=== PATIENT | male | born 1940 | race Caucasian/White ===

== ENCOUNTER 2017-04-07 04:10 | Emergency (ER) | payer OTHER ==
[~2017-04-07] VITALS: Ht 172.7 cm; Wt 71.0 kg
[~2017-04-07 04:10] MED LIST: ACTONEL35 MG PO; ACTONEL5 MG PO; BENADRYL25 MG PO; CLINDAMYCIN HC300 MG PO; COUMADIN1 MG PO; DELTASONE10 MG PO; FERROUS SULFAT325 MG PO; HYDROCODON-ACE1 EAC7 PO; KEFLEX500 MG PO; NORCO 5/3251 TABLET PO; PEN-VEE K,VEET500 MG PO; PERCOCET 5/31 TABLET PO; PREDNISONE10 MG PO; PRO AIR; PROAIR HFA8.5 GM IH; SENNA-TIME S T1 EACH PO; SILVADENE20 GM TP; THEOPHYLLINE A300 M1 PO; THEOPHYLLINE PO; TRAMADOL HCL50 MG PO; TYLENOL REGULA325 MG PO; TYLENOL WITH C1 EACH PO; VITAMIN D1000 UNIT PO
[2017-04-07] MEDS ORDERED: BACITRAYCIN PLU28 G1 TP (05:38)
[2017-04-07 05:57] VITALS: BP 151/70
== END 2017-04-07 05:57 | disposition home or self-care (01) ==
LOC: EME 04:10
PROVIDERS: Emergency Medicine
DX: S91.312A Laceration without foreign body, left foot, initial encounter (principal); S91.311A Laceration without foreign body, right foot, initial encounter; M25.572 Pain in left ankle and joints of left foot; M25.571 Pain in right ankle and joints of right foot; G89.29 Other chronic pain; J44.9 Chronic obstructive pulmonary disease, unspecified; K21.9 Gastro-esophageal reflux disease without esophagitis; Z88.6 Allergy status to analgesic agent; Z88.8 Allergy status to other drugs, medicaments and biological substances
CPT/HCPCS: 82948; 99281; 99284

== ENCOUNTER 2017-05-15 16:26 | Emergency (ER) | payer OTHER ==
[~2017-05-15] VITALS: Ht 172.7 cm; Wt 75.1 kg
[~2017-05-15 16:26] MED LIST changes: +BACITRAYCIN PLU28 G1 TP
[2017-05-15] MEDS ORDERED: ULTRACET1 TABLET PO (18:34)
[2017-05-15 18:58] VITALS: BP 165/71
== END 2017-05-15 19:02 | disposition home or self-care (01) ==
LOC: EME 16:26
DX: S43.401A Unspecified sprain of right shoulder joint, initial encounter (principal); X50.0XXA Overexertion from strenuous movement or load, initial encounter; Y92.511 Restaurant or cafe as the place of occurrence of the external cause; Y99.0 Civilian activity done for income or pay; J45.909 Unspecified asthma, uncomplicated; Z88.6 Allergy status to analgesic agent
CPT/HCPCS: 73030; 99281; 99283

== ENCOUNTER 2017-06-01 10:41 | Emergency (ER) | payer OTHER ==
[~2017-06-01] VITALS: Ht 172.7 cm; Wt 72.6 kg
[~2017-06-01 10:41] MED LIST changes: +ULTRACET1 TABLET PO
[2017-06-01] MEDS ORDERED: XARELTO1 EACH PO (13:58)
[2017-06-01] MEDS ORDERED: PERCOCET 5/31 TABLET PO (13:58)
[2017-06-01 14:16] LABS: CHLORIDE 108 mEq/L (99-109); POTASSIUM 4.3 mEq/L (3.7-5.4)
[2017-06-01 14:17] LABS: SODIUM 141 mEq/L (136-147)
[2017-06-01 14:18] LABS: GLUCOSE 100 mg/dL (70-99)
[2017-06-01 14:22] LABS: CREATININE 0.9 mg/dL (0.6-1.3); GFR ESTIMATE (CALCULATED) > 59 mL/min/ (58.99-99999)
[2017-06-01 14:23] LABS: UREA NITROGEN (BUN) 25 mg/dL (9-23)
[2017-06-01] MEDS ORDERED: ELIQUIS5 MG PO (14:27)
[2017-06-01 14:46] VITALS: BP 119/73
== END 2017-06-01 14:46 | disposition home or self-care (01) ==
LOC: EME 10:41
PROVIDERS: Nurse Practitioner Family
DX: S92.402A Displaced unspecified fracture of left great toe, initial encounter for closed fracture (principal); M25.511 Pain in right shoulder; W18.30XA Fall on same level, unspecified, initial encounter; Y99.0 Civilian activity done for income or pay; I82.492 Acute embolism and thrombosis of other specified deep vein of left lower extremity; M77.32 Calcaneal spur, left foot; J45.909 Unspecified asthma, uncomplicated; Z79.52 Long term (current) use of systemic steroids
CPT/HCPCS: 73590; 73610; 73630; 80048; 93971; 99281; 99284

== ENCOUNTER → 2017-09-29 | Outpatient (CLI) | payer OTHER ==
[~2017-09-29] MED LIST changes: +ELIQUIS5 MG PO; +XARELTO1 EACH PO
== END | disposition home or self-care (01) ==
LOC: RAD 11:32
DX: R07.9 Chest pain, unspecified (principal)
CPT/HCPCS: 71046

== ENCOUNTER 2017-10-22 20:19 | Emergency (ER) | payer OTHER ==
[~2017-10-22] VITALS: Ht 172.7 cm; Wt 77.0 kg
[2017-10-22 20:52] LABS: HEMATOCRIT 40.8 % (38.0-50.0); HEMOGLOBIN 14.1 G/DL (12.5-16.6); MCH 32.1 PG (29.0-34.0); MCHC 34.6 G/DL (30.0-36.0); MCV 92.9 FL (86-99); NRBC (%) 0.2 /100 WBC (0-0); PLATELET COUNT 166 K/uL (156-360); RBC DIS.WIDTH-CV 14.6 % (11.8-14.6); RBC DIS.WIDTH-SD 49.7 % (39-53); RED BLOOD COUNT 4.39 M/uL (4.00-5.50); WHITE BLOOD COUNT 12.2 K/uL (4.1-10.2)
[2017-10-22 21:02] LABS: CHLORIDE 103 mEq/L (99-109); POTASSIUM 5.8 mEq/L (3.7-5.4); SODIUM 143 mEq/L (136-147)
[2017-10-22 21:03] LABS: GLUCOSE 102 mg/dL (70-99)
[2017-10-22 21:07] LABS: GFR ESTIMATE (CALCULATED) > 59 mL/min/ (58.99-99999)
[2017-10-22 21:08] LABS: UREA NITROGEN (BUN) 33 mg/dL (9-23)
[2017-10-22] MEDS ORDERED: CELEBREX50 MG PO (23:09)
[2017-10-22 23:54] VITALS: BP 146/84
== END 2017-10-22 23:56 | disposition home or self-care (01) ==
LOC: EME 20:19
DX: M77.32 Calcaneal spur, left foot (principal); E87.5 Hyperkalemia; I82.402 Acute embolism and thrombosis of unspecified deep veins of left lower extremity; Z79.01 Long term (current) use of anticoagulants; K21.9 Gastro-esophageal reflux disease without esophagitis; J43.9 Emphysema, unspecified; J45.909 Unspecified asthma, uncomplicated; Z88.6 Allergy status to analgesic agent; Z88.8 Allergy status to other drugs, medicaments and biological substances
CPT/HCPCS: 73564; 73630; 80048; 85027; 85610; 93005; 93970; 99281; 99285; J7040